=== PATIENT | male | born 1965 | race Two or more races ===

== ENCOUNTER 2020-09-12 18:53 | Emergency (ER) | payer OTHER ==
[~2020-09-12] VITALS: Ht 165.1 cm; Wt 97.1 kg
[2020-09-12] MEDS ORDERED: CRESTOR10 MG (19:51)
[2020-09-12] MEDS ORDERED: VALSARTAN-HCTZ1 EAC1 (19:56)
== END 2020-09-12 20:51 | disposition home or self-care (01) ==
LOC: ER 18:53
DX: S81.822A Laceration with foreign body, left lower leg, initial encounter (principal); W45.8XXA Other foreign body or object entering through skin, initial encounter; Y93.89 Activity, other specified; Y92.89 Other specified places as the place of occurrence of the external cause; Y99.8 Other external cause status